=== PATIENT | female | born 1995 | race Caucasian/White ===

== ENCOUNTER → 2017-01-04 | Outpatient (CLI) | payer MEDICAID ==
--- NOTE | 2017-01-04 22:10 | WWHP ---
DATE OF SERVICE: 01/04/2017. CHIEF COMPLAINT: Patient is here for her routine gynecologic exam. HPI: This is a 22-year-old G0 with an LMP of 11/26/2016. She has been using condoms and occasionally withdrawal for control. She states she would like to go back on control pills. She previously was on Junel for control until about a year ago when she did not have insurance. She is without gynecologic complaints. She states her periods have been slightly more irregular off of control pills and have been about every 5 to 6 weeks. Her last pelvic exam was about 2 years ago. PAST MEDICAL HISTORY: Unremarkable. MEDICATIONS: None. ALLERGIES: No known drug allergies. PAST SURGICAL HISTORY: Unremarkable. 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 SOCIAL HISTORY: She denies tobacco and drug use and has about 4 to 5 alcoholic drinks per week. She has been with her boyfriend since about 2006. They are engaged to be on 07/16/2017. The patient works for [employer] in patient [place] in. FAMILY HISTORY: Mother has thyroid problems. She denies family history of cancer of the breast, uterus, ovaries or colon. REVIEW OF SYSTEMS: She denies respiratory, cardiac, or GI problems. PHYSICAL EXAM: Blood pressure 138/76. Height 5 feet 6 inches. Weight 171 pounds. Temperature 99.0, pulse 71. This is a well-developed, well-nourished white female who is alert and oriented x3 in no acute distress. HEENT is within normal limits. NECK: Supple without mass or thyromegaly. CHEST AND LUNGS: Clear to auscultation. HEART: Regular rate and rhythm. Breasts are without mass or discharge. Axillary exam is negative for adenopathy. BACK: Negative for CVA tenderness. ABDOMEN: Soft, nontender, without palpable masses. PELVIC EXAM: Normal external genitalia. Cervix and vagina appear normal. There is no unusual discharge. There is no cervical motion tenderness. The uterus is midposition, nongravid size and nontender. There are no palpable adnexal masses or tenderness. Rectal exam was deferred. EXTREMITIES: Nontender. IMPRESSION: A 22-year-old healthy female requesting oral contraception for control. PLAN: 1. Pap smear was performed. 2. Self-breast examination was discussed. 3. GC and Chlamydia screening from the cervix has been obtained. 4. We have had a long discussion regarding control and control options. The patient would like to restart Junel. A prescription for Junel was given to the patient. She will take 1 p.o. daily and she will start this on Tuesday following the onset of her next normal period. We had a long discussion regarding possible side effects and risks of control pill including increased risk for blood clots, which could include TN or CVA. She will also use condoms through the first pack of pills and if needed for STD prevention. 5. She will do blood pressure checks. She states she will do this in the hospital since she works here. She will let me know if she has blood pressure elevation or problems. 6. She will return in one year.
== END ==
LOC: WWCWWP 09:58
PROVIDERS: ATTEND Obstetrics & Gynecology
DX: Z11.3 Encounter for screening for infections with a predominantly sexual mode of transmission (principal); Z01.419 Encounter for gynecological examination (general) (routine) without abnormal findings
CPT/HCPCS: 87491; 87591

== ENCOUNTER → 2018-01-25 | Outpatient (CLI) | payer MEDICAID ==
[2018-01-25 08:12] VITALS: BP 136/88; PULSE 111; TEMP 98; BMI 26.1
--- NOTE | 2018-01-25 08:45 | P.HPOB ---
History of Present Illness H&P Date: 01/25/18 Chief Complaint: The patient is here for her routine gynecologic exam. This is a 23-year-old G0 with an LMP of 01/08/2018. She is on oral contraception for control. She is without gynecologic complaints and would like to continue on the control pills. She does not plan on getting in the next 1 to 2 years. Her menstrual periods are regular and not heavy. Review of Systems She has lost 9 pounds over the last year. She denies respiratory, cardiac, or G.I. problems. 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 Past Surgical History: No Surgical Hx Reported Past Psychological History: No Psychological Hx Reported Smoking Status: Never smoker Past Alcohol Use History: Occasional (2 per week) Past Drug Use History: None Reported Additional History: She has been since June 2017. She works for [employer] in [employer] in. - Past Family History Mother Family Medical History: Thyroid Disorder Medications and Allergies Home Medications Medication Instructions Recorded Confirmed Type Norethindrone-E.estradiol-Iron DAILY 01/25/18 History [Junel Fe 1.5 mg-30 Mcg Tablet] Allergies Allergy/AdvReac Type Severity Reaction Status Date / Time No Known Allergies Allergy Verified 01/25/18 08:40 Exam - Vital Signs Vital signs: Vital Signs Temp Pulse BP 01/25/18 08:01 98.0 F 111 H 136/88 Intake and Output 01/24/18 01/25/18 01/25/18 22:59 06:59 14:59 Other: Weight 73.482 kg Height 5'6", BMI 26.1. This is a well-developed well-nourished white female who is alert and oriented times 3 in no acute distress. HEENT: Within normal limits. NECK: Supple without mass or thyromegaly. CHEST AND LUNGS: Clear to auscultation. HEART: Regular rhythm with mild tachycardia. BREASTS: Are without mass or discharge. AXILLARY EXAM: Negative for adenopathy. BACK: Negative for CVA tenderness. ABDOMEN: Soft, nontender, without palpable masses. PELVIC EXAM: Normal external genitalia. Cervix and vagina appear normal. There is no unusual discharge. There is no evidence of prolapse. The uterus is midposition, nongravid size and nontender. There are no palpable adnexal masses or tenderness. RECTAL EXAM: deferred EXTREMITIES: Nontender. IMPRESSION: 1. 23-year-old gynecologically healthy female doing well on oral contraception. PLAN: 1. Pap smear was deferred since she had a normal one last year. 2. Self breast awareness was discussed. 3. Osteoporosis prevention was discussed. 4. I have recommended a daily multivitamin especially if she decides to stop the control pills to attempt . 5. She will return in one year.
[2018-01-27 07:18] LABS: C. trachomatis,PCR Negative (Neg,Equiv); Chlamydia trachomatis Source Cervix; N. gonorrhoeae,PCR Negative (Neg,Equiv); Neisseria Source Cervix
== END ==
LOC: WWCWWP 07:54
PROVIDERS: ATTEND Obstetrics & Gynecology
DX: Z11.3 Encounter for screening for infections with a predominantly sexual mode of transmission (principal)
CPT/HCPCS: 87491; 87591

== ENCOUNTER → 2019-05-18 | Outpatient (CLI) | payer MEDICAID ==
[2019-05-18 08:18] LABS: Basophils # (A) 0.1 k/uL (0-0.2); Basophils % (A) 1 %; Eosinophils # (A) 0.2 k/uL (0-0.7); Eosinophils % (A) 3 %; HCT 41.7 % (34.0-46.0); HGB 13.6 gm/dL (11.4-16.0); Lymphocytes # (A) 2.3 k/uL (1.0-4.8); Lymphocytes % (A) 38 %; MCH 30.3 pg (25.0-35.0); MCHC 32.7 g/dL (31.0-37.0); MCV 92.8 fL (80.0-100.0); Monocytes # (A) 0.3 k/uL (0-1.0); Monocytes % (A) 4 %; Neutrophils % (A) 51 %; Platelet Count 274 k/uL (150-450); RBC 4.49 m/uL (3.80-5.40); RDW 12.7 % (11.5-15.5)
[2019-05-18 19:07] LABS: African American GFR (CKD) 102.3 (60.0-200.0); Albumin 4.8 g/dL (3.80-4.90); Albumin/Globulin Ratio 1.92 (1.60-3.17); Anion Gap 11.6 mmol/L (4.00-12.00); BUN/Creat Ratio 15.56 Ratio (12.00-20.00); Carbon Dioxide 23.4 mmol/L (21.6-31.8); Globulin 2.5 g/dL (1.6-3.3); LDL Cholesterol,Calculated 77.6 mg/dL (0.0-131.0); Potassium 4.6 mmol/L (3.5-5.5); Total Bilirubin 0.6 mg/dL (0.3-1.2); Total Protein 7.3 g/dL (6.2-8.2); VLDL Calculation 24.4 mg/dL (5.00-40.00)
== END | disposition home or self-care (01) ==
LOC: LABWHC1 07:59
PROVIDERS: ATTEND Family Medicine
DX: Z00.00 Encounter for general adult medical examination without abnormal findings (principal)
CPT/HCPCS: 36415; 80053; 80061; 82306; 84443; 85025

== ENCOUNTER 2020-03-30 18:52 | Emergency (ER) | payer MEDICAID ==
[2020-03-30 19:13] VITALS: BP 109/78; PULSE 78; RESP 16; TEMP 98.1
[2020-03-30] MEDS ORDERED: SODIUM CHLORIDE 0.9% 500 ML 500 ML IV STA (19:19)
[2020-03-30] MEDS ORDERED: MORPHINE SULFATE 4 MG/ML SYRINGE IV STA (19:20)
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
[2020-03-30] MEDS ORDERED: LIDOCAINE 1% INJ 10MG/ML (20 ML MDV) SQ STA (19:55)
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
[2020-03-30 20:17] LABS: Basophils % (A) 1 %; Eosinophils # (A) 0.2 k/uL (0-0.7); Eosinophils % (A) 3 %; HCT 39.2 % (34.0-46.0); HGB 13.3 gm/dL (11.4-16.0); Lymphocytes # (A) 2.6 k/uL (1.0-4.8); Lymphocytes % (A) 45 %; MCHC 33.9 g/dL (31.0-37.0); MCV 91.4 fL (80.0-100.0); Mean Platelet Volume 7.5; Monocytes # (A) 0.2 k/uL (0-1.0); Monocytes % (A) 3 %; Neutrophils # (A) 2.6 k/uL (1.3-7.7); Neutrophils % (A) 46 %; Platelet Count 255 k/uL (150-450); RBC 4.29 m/uL (3.80-5.40); RDW 12.2 % (11.5-15.5); WBC 5.7 k/uL (3.8-10.6)
[2020-03-30] MEDS ORDERED: MORPHINE SULFATE 2 MG/ML SYRINGE IVP STA (20:24)
[2020-03-30 20:28] LABS: ALT 20 U/L (4-34); AST 28 U/L (14-36); African American GFR (CKD) >90 (>60 ml/min/1.73 sqM); Albumin 4.9 g/dL (3.5-5.0); Alcohol 73 mg/dL; Alkaline Phosphatase 45 U/L (38-126); Amylase 74 U/L (30-110); Anion Gap 11 mmol/L; Blood Urea Nitrogen 12 mg/dL (7-17); Calcium 9.7 mg/dL (8.4-10.2); Carbon Dioxide 24 mmol/L (22-30); Chloride 105 mmol/L (98-107); Glucose 90 mg/dL (74-99); Non-African American GFR(CKD) >90 (>60 ml/min/1.73 sqM); Potassium 3.8 mmol/L (3.5-5.1); Sodium 140 mmol/L (137-145); Total Bilirubin 0.2 mg/dL (0.2-1.3)
[2020-03-30 20:34] LABS: INR 0.9 (<1.2); Prothrombin Time 9.7 sec (9.0-12.0)
--- NOTE | 2020-03-30 20:41 | XR ---
EXAMINATION TYPE: XR wrist limited LT DATE OF EXAM: 03/30/2020 COMPARISON: NONE HISTORY: Post reduction TECHNIQUE: 2 views FINDINGS: There is impacted transverse fracture distal radial metaphysis. There is anterior angulatio n at the fracture site. There is ulnar styloid process fracture. There is no dislocation. IMPRESSION: Fractures of the distal radius and ulna as above without significant change in position c ompared to initial exam.
[2020-03-30 20:42] LABS: Creatine Kinase 130 U/L (30-135); Partial Thromboplastin Time 19.9 sec (22.0-30.0)
[2020-03-30 20:55] LABS: Creatine Kinase MB 0.8 ng/mL (0.0-2.4); Troponin I <0.012 ng/mL (0.000-0.034)
--- NOTE | 2020-03-30 21:00 | XR ---
EXAMINATION TYPE: XR wrist limited LT DATE OF EXAM: 03/30/2020 COMPARISON: Today HISTORY: Post reduction TECHNIQUE: 2 views FINDINGS: There is persistent 50% posterior displacement of the distal radius fracture fragment on th e lateral view. There is slight decrease in the angulation. There is soft tissue swelling around the carpus. There is ulnar styloid process fracture with separation 4 mm unchanged. IMPRESSION: Improvement in the angulation but persistent moderate posterior displacement of the dista l radius fragment 50%.
[2020-03-30] MEDS ORDERED: ACET/COD 300 MG/30 MG STARTER PACK 6 TAB BTL PO STA (21:54)
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
== END 2020-03-30 22:05 | disposition home or self-care (01) ==
LOC: EC 18:52
DX: S52.592A Other fractures of lower end of left radius, initial encounter for closed fracture (principal); S52.692A Other fracture of lower end of left ulna, initial encounter for closed fracture; V86.56XA Driver of dirt bike or motor/cross bike injured in nontraffic accident, initial encounter
CPT/HCPCS: 86900; 86901; 80053; 82150; 82550; 82553; 83605; 83690; 84484; 85025; 85610; 85730; 86850; 80320; 72170; 73100; 73120; 71045; 72125; 70450; 99285; 25605; 96374; 96376; 96361; J2270 ×2; J2001; 36415; 93005

== ENCOUNTER → 2020-03-31 | Outpatient (CLI) | payer MEDICAID ==
[2020-03-31 10:57] LABS: Basophils % (A) 0 %; Eosinophils # (A) 0.1 k/uL (0-0.7); Eosinophils % (A) 1 %; HCT 39.3 % (34.0-46.0); HGB 12.7 gm/dL (11.4-16.0); Lymphocytes # (A) 1.9 k/uL (1.0-4.8); Lymphocytes % (A) 25 %; MCH 30.2 pg (25.0-35.0); MCHC 32.4 g/dL (31.0-37.0); MCV 93.4 fL (80.0-100.0); Mean Platelet Volume 7.6; Monocytes # (A) 0.3 k/uL (0-1.0); Monocytes % (A) 3 %; Neutrophils # (A) 5.1 k/uL (1.3-7.7); Neutrophils % (A) 68 %; Platelet Count 267 k/uL (150-450); RBC 4.21 m/uL (3.80-5.40); RDW 12.5 % (11.5-15.5); WBC 7.5 k/uL (3.8-10.6)
== END | disposition home or self-care (01) ==
LOC: LAB 09:35
PROVIDERS: ATTEND Orthopaedic Surgery
DX: Z01.818 Encounter for other preprocedural examination (principal); S52.552A Other extraarticular fracture of lower end of left radius, initial encounter for closed fracture; S52.612A Displaced fracture of left ulna styloid process, initial encounter for closed fracture
CPT/HCPCS: 36415; 81025; 85025

== ENCOUNTER 2020-04-01 14:37 | Day surgery (SDC) | payer MEDICAID ==
[2020-03-31 13:50] VITALS: BMI 26.6
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
[~2020-04-01 14:37] MED LIST: DEXAMETHASONE SOD PHOSPHATE 10 MG/ML 1 ML VIAL IV ONE; LIDOCAINE 1% (10MG/ML) FOR IV START INTRADERMA PRN; ONDANSETRON 4 MG/2 ML VIAL IVP ONE; SCOPOLAMINE 1.5MG/72HR PATCH TRANSDERM ONE
[2020-04-01] MEDS: LACTATED RINGERS 1,000 ML IV SCH (15:05)
[2020-04-01] MEDS ORDERED: NEOSTIGMINE 1 MG/ML 10 ML VIAL ONE (17:29)
[2020-04-01] MEDS ORDERED: MIDAZOLAM 2 MG/2 ML VIAL ONE (17:29)
[2020-04-01] MEDS ORDERED: PHENYLEPHRINE-0.9% NACL SYG 1 MG/10 ML SYRINGE ONE (17:29)
[2020-04-01] MEDS ORDERED: ROCURONIUM BROMIDE 10 MG/ML 5 ML VIAL IV ONE (17:29)
[2020-04-01] MEDS ORDERED: LIDOCAINE 1% INJ 10MG/ML (20 ML MDV) ONE (17:29)
[2020-04-01] MEDS ORDERED: GLYCOPYRROLATE 0.2 MG/ML 2 ML VIAL ONE (17:29)
[2020-04-01] MEDS ORDERED: fentaNYL (PF) 50 MCG/ML 2 ML AMP ONE (17:29)
[2020-04-01] MEDS ORDERED: PROPOFOL 10 MG/ML 20 ML VIAL IV ONE (17:29)
[2020-04-01] MEDS ORDERED: LACTATED RINGERS 1,000 ML IV ONE (18:15)
[2020-04-01] MEDS ORDERED: ceFAZolin 1,000 MG in SODIUM CHLORIDE 0.9% 1,000 ML IRRIGATION ONE (18:39)
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
[2020-04-01] MEDS: HYDROmorphone 0.5 MG/0.5 ML SYRINGE IVP PRN ×3 (19:30→19:51)
[2020-04-01] MEDS ORDERED: MEPERIDINE 50 MG/ML SYRINGE IVP ONE (19:38)
[2020-04-01] MEDS ORDERED: HYDROcodone/APAP 10-325MG 1 EACH TAB PO ONE (20:02)
[2020-04-01] MEDS ORDERED: HYDROcodone/APAP 7.5-325MG 1 EACH TAB PO PRN ×2 (22:57→22:58)
[2020-04-01] MEDS ORDERED: HYDROmorphone 0.5 MG/0.5 ML SYRINGE IVP PRN (22:58)
[2020-04-02] MEDS: LACTATED RINGERS 1,000 ML IV SCH (07:29)
[2020-04-02 07:37] VITALS: BP 118/75; PULSE 74; RESP 18; TEMP 98.7
--- NOTE | 2020-04-02 07:53 | FL ---
EXAMINATION TYPE: FL guidance operating room, XR wrist complete LT DATE OF EXAM: 04/01/2020 CLINICAL HISTORY: Left wrist fracture. TECHNIQUE: Fluoroscopy. Intraoperative 3 views left wrist. COMPARISON: Left wrist x-ray 2 days earlier. FINDINGS: Fluoroscopic guidance was provided during open reduction internal fixation procedure perfo rmed by Dr Miles. A total of 46 seconds of fluoroscopic time was utilized during the procedure and 3 spot intraoperative images are acquired. Intraoperative images obtained show placement of dorsal fixating plate comminuted intra-articular fra cture distal radial meta-epiphysis. Satisfactory alignment is seen on intraoperative images saved. IMPRESSION: As Above.
--- NOTE | 2020-04-02 08:38 | P.DS ---
Providers Date of admission: 04/01/2020 Expected date of discharge: 04/02/20 Attending physician: Raghavendra Miles Primary care physician: Sebastian Sarah Hospital Course: Date of admission: 04/01/2020 Date of discharge: 04/02/2020 Admission diagnosis: Status post ORIF left distal radius fracture Discharge diagnosis: Same Attending physician: Dr. Miles Surgical procedures: ORIF left distal radius fracture Brief history: Patient is a 25-year-old female who was evaluated in the outpatient setting by Dr. Miles for a left wrist injury. It was determined she would need surgical fixation for a displaced left distal radius fracture. She was scheduled for surgery on 04/01/2020. Hospital course: Details of patient's surgery can be found in operative report. Patient tolerated the procedure well and was subsequently transported to orth opedic floor. Discharge condition/disposition: Patient will be discharged home in stable condition. Discharge medications: Instructions are given on resumption of patient's normal daily medications per primary care recommendation, in addition patient will be prescribed [place] 7.5 mg/325 mg, ibuprofen 800 mg Discharge instructions: 1. Pain medication as needed 2. Utilize arm sling as needed 3. Keep splint clean, covered, and dry while showering 4. Elevate and ice as needed 5. Plan [facility] Procedures: Open reduction internal fixation left distal radius fracture Patient Condition at Discharge: Good Plan - Discharge Summary New Discharge Prescriptions: New Ibuprofen 800 mg PO Q8H PRN #30 tab PRN Reason: Pain HYDROcodone/APAP 7.5-325MG [[place] 7.5] 1 each PO Q6HR PRN #28 tab PRN Reason: Pain No Action Hydrocodone/Acetaminophen [[place] 5-325] 2 tab PO Q6HR PRN PRN Reason: Pain Discharge Medication List Hydrocodone/Acetaminophen [[place] 5-325] 2 tab PO Q6HR PRN 03/31/20 [History] HYDROcodone/APAP 7.5-325MG [[place] 7.5] 1 each PO Q6HR PRN #28 tab 04/01/20 [Rx] Ibuprofen 800 mg PO Q8H PRN #30 tab 04/01/20 [Rx] Follow up Appointment(s)/Referral(s): Moris Wynn PAC [PHYSICIAN BRAINER] - 2 Weeks Activity/Diet/Wound Care/Special Instructions: Orthopedic discharge instructions: 1. Do not remove the splint, keep covered and dry while showering 2. Pain medication as needed 3. Utilize arm sling as needed 4. Ice and elevate often 5. Minimize activity with left upper extremity 6. Plan for [facility]-up at [facility] 2 weeks Discharge Disposition: HOME SELF-CARE
== END 2020-04-02 09:08 | disposition home or self-care (01) ==
LOC: OR 14:37 → 4SSUR 19:42 → OR 04-02 09:08
PROVIDERS: ATTEND Orthopaedic Surgery
DX: S52.552A Other extraarticular fracture of lower end of left radius, initial encounter for closed fracture (principal); V89.0XXA Person injured in unspecified motor-vehicle accident, nontraffic, initial encounter; Y93.89 Activity, other specified; Y92.096 Garden or yard of other non-institutional residence as the place of occurrence of the external cause; K21.9 Gastro-esophageal reflux disease without esophagitis; Z83.79 Family history of other diseases of the digestive system; Z79.891 Long term (current) use of opiate analgesic
CPT/HCPCS: 73110; 25607; C1713; J2250; J1100; J2710; J2175; J0690 ×2; J2405; J2001; J3010; J2370; J2704; J1170 ×2

== ENCOUNTER → 2020-10-21 | Outpatient (CLI) | payer BC ==
[2020-10-21 16:31] LABS: T4, Free (Free Thyroxine) 1.2 ng/dL (0.80-1.80)
== END | disposition home or self-care (01) ==
LOC: LABWHC1 07:47
PROVIDERS: ATTEND Obstetrics & Gynecology Obstetrics
DX: E03.9 Hypothyroidism, unspecified (principal); N91.2 Amenorrhea, unspecified
CPT/HCPCS: 36415; 84439; 84443

== ENCOUNTER → 2021-06-05 | Outpatient (CLI) | payer BC | END | disposition home or self-care (01) | LOC: LABMAIN 17:11 | PROVIDERS: ATTEND Physician Assistant | DX: Z20.822 Contact with and (suspected) exposure to COVID-19 (principal) | CPT/HCPCS: 87635 ==

== ENCOUNTER 2021-08-14 12:29 | Inpatient (IN) | payer BC ==
[2021-08-14 13:35] LABS: Appearance,Urine Clear (Clear); Bilirubin,Urine Negative (Negative); Blood,Urine Negative (Negative); Color,Urine Light Yellow; Glucose,Urine (UA) Negative (Negative); Ketones,Urine Negative (Negative); Leukocyte Esterase,Urine Negative (Negative); Nitrite,Urine Negative (Negative); Protein,Urine Negative (Negative); Urobilinogen,Urine <2.0 mg/dL (<2.0)
[2021-08-14 13:37] LABS: Basophils % (A) 0 %; Eosinophils # (A) 0.1 k/uL (0-0.7); Eosinophils % (A) 1 %; HCT 36.4 % (34.0-46.0); HGB 12.3 gm/dL (11.4-16.0); Lymphocytes # (A) 1.8 k/uL (1.0-4.8); Lymphocytes % (A) 17 %; MCH 31.7 pg (25.0-35.0); MCHC 33.8 g/dL (31.0-37.0); MCV 93.8 fL (80.0-100.0); Mean Platelet Volume 8.1; Monocytes # (A) 0.4 k/uL (0-1.0); Monocytes % (A) 3 %; Neutrophils # (A) 8.7 k/uL (1.3-7.7); Neutrophils % (A) 78 %; Platelet Count 200 k/uL (150-450); RBC 3.88 m/uL (3.80-5.40); RDW 12.3 % (11.5-15.5); WBC 11.1 k/uL (3.8-10.6)
[2021-08-14 13:53] LABS: ALT 13 U/L (4-34); AST 20 U/L (14-36); African American GFR (CKD) >90 (>60 ml/min/1.73 sqM); Blood Urea Nitrogen 9 mg/dL (7-17); LDH 380 U/L (313-618); Non-African American GFR(CKD) >90 (>60 ml/min/1.73 sqM); Uric Acid 4.8 mg/dL (3.7-7.4)
[2021-08-14 13:55] LABS: Protein/Creatinine Ratio,Urine 0.163
[2021-08-14] MEDS ORDERED: OXYTOCIN 10 UNIT/ML 1 ML VIAL IM PRN (14:06)
[2021-08-14] MEDS ORDERED: METHYLERGONOVINE 0.2 MG/ML 1 ML AMP IM PRN (14:06)
[2021-08-14] MEDS ORDERED: TERBUTALINE 1 MG/ML VIAL SQ PRN (14:06)
[2021-08-14] MEDS ORDERED: CARBOPROST TROMETHAMINE 250 MCG/ML 1 ML AMP IM PRN (14:06)
[2021-08-14] MEDS ORDERED: LIDOCAINE 0.5% (PF) 5 MG/ML (50 ML SDV) SQ PRN (14:06)
[2021-08-14] MEDS ORDERED: BUTORPHANOL 1 MG/ML 1 ML VIAL IV PRN (14:09)
[2021-08-14] MEDS ORDERED: OXYTOCIN 30 UNITS/500 ML NS 30 UNIT in SALINE 1 500ML.BAG IV SCH ×2 (14:15→18:45)
[2021-08-14] MEDS: LACTATED RINGERS 1,000 ML IV SCH (14:28)
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
[2021-08-14 15:44] LABS: INR 0.8 (<1.2); Prothrombin Time 9.4 sec (9.0-12.0)
[2021-08-14] MEDS ORDERED: ACETAMINOPHEN TAB 325 MG TAB PO PRN (18:42)
[2021-08-14] MEDS ORDERED: diphenhydrAMINE 50 MG/ML 1 ML VIAL IVP PRN ×2 (18:42)
[2021-08-14] MEDS ORDERED: diphenhydrAMINE 25 MG CAP PO PRN (18:42)
[2021-08-14] MEDS ORDERED: LANOLIN CREAM 5 GM TUBE TOPICAL PRN (18:42)
[2021-08-14] MEDS ORDERED: SIMETHICONE 80 MG CHEWABLE PO PRN (18:42)
[2021-08-14] MEDS ORDERED: HYDROCORTISONE 2.5% RECTAL CREAM 30 GM TUBE RECTAL PRN (18:42)
[2021-08-14] MEDS ORDERED: diphenhydrAMINE 50 MG CAP PO PRN (18:42)
[2021-08-14] MEDS ORDERED: BENZOCAINE/MENTHOL SPRAY 1 GM/SPRAY AEROSOL TOPICAL PRN (18:42)
[2021-08-14] MEDS ORDERED: ZOLPIDEM 5 MG TAB PO PRN (18:42)
--- NOTE | 2021-08-14 18:42 | P.PROBDLV ---
Vaginal Delivery Note - . Vaginal Delivery Note: This is a 26-year-old 1 para 0 at 39-3/7 weeks that presented to labor and delivery this afternoon with complaints of regular painful contractions. Patient was noted to be 3-4 cm. Patient was in addition noted have slightly elevated blood pressure 140/90 with negative preeclampsia labs. Patient was admitted to labor and delivery after slight cervical change was noted to for 70 m. Patient underwent amniotomy and clear fluid was obtained. Patient progress ed quickly to complete began pushing and had a normal spontaneous vaginal delivery of a viable female infant after midline episiotomy was performed. weight of 7 lbs. 8 oz., at 1811. After two-minute delayed the umbilical cord was doubly clamped and cut. The was handed to the maternal abdomen. The placenta was delivered spontaneously intact with a three-vessel cord being noted. A large gush of bleeding was noted after the delivery of the placenta therefore Methergine was given. The uterus is noted to be atonic therefore the bladder was drained of approximately 150 mL of clear yellow urine with a red rubber catheter. The uterus was then noted to be firm. The midline second-degree episiotomy was repaired in the usual fashion with 3-0 Rapide, hemostasis was appreciated. Uterus was still noted to be boggy at this time therefore manual extraction revealed 2 large clots the uterus immediately firm to below the umbilicus. The repair was inspected once again hemostasis was appreciated. All counts were noted be correct 2 at the end of the delivery. Patient and tolerated delivery well and are resting comfortably.
[2021-08-14] MEDS: IBUPROFEN 600 MG TAB PO SCH (19:13)
[2021-08-14] MEDS: SENNOSIDES-DOCUSATE SODIUM 1 EACH TAB PO SCH (21:15)
[2021-08-15] MEDS: LACTATED RINGERS 1,000 ML IV SCH (00:12)
[2021-08-15] MEDS: IBUPROFEN 600 MG TAB PO SCH ×4 (05:13→18:55)
[2021-08-15 08:10] VITALS: RESP 14
[2021-08-15 08:46] LABS: Basophils % (A) 0 %; Eosinophils # (A) 0.1 k/uL (0-0.7); Eosinophils % (A) 0 %; HCT 30.6 % (34.0-46.0); HGB 10.4 gm/dL (11.4-16.0); Lymphocytes # (A) 1.8 k/uL (1.0-4.8); Lymphocytes % (A) 13 %; MCH 32.3 pg (25.0-35.0); MCHC 33.9 g/dL (31.0-37.0); MCV 95.3 fL (80.0-100.0); Mean Platelet Volume 8.2; Monocytes # (A) 0.5 k/uL (0-1.0); Monocytes % (A) 3 %; Neutrophils # (A) 11.4 k/uL (1.3-7.7); Neutrophils % (A) 82 %; Platelet Count 205 k/uL (150-450); RBC 3.21 m/uL (3.80-5.40); RDW 12.5 % (11.5-15.5)
[2021-08-15] MEDS: SENNOSIDES-DOCUSATE SODIUM 1 EACH TAB PO SCH ×2 (08:47→18:54)
--- NOTE | 2021-08-15 11:22 | P.DS ---
Providers Date of admission: 08/14/21 14:13 Expected date of discharge: 08/15/21 Attending physician: Michelle Lafleur Primary care physician: Stated None - Discharge Diagnosis(es) (1) Active labor Current Visit: Yes Status: Acute (2) Term Current Visit: Yes Status: Acute (3) Perineal laceration with delivery, second degree Current Visit: Yes Status: Acute (4) Normal spontaneous vaginal delivery Current Visit: Yes Status: Acute Hospital Course: This is a 26-year-old 1 now para 1 woman who presented in spontaneous active labor at 39-3/7 weeks gestation. She had an uncomplicated . Following admission she did undergo artificial rupture of membranes and had a rapid first stage of labor. She progressed to complete dilation and went on to deliver a liveborn female over a second-degree midline episiotomy. Infant's weight was 7 lbs. 8 oz. She did have some mild atony that was managed by the manual uterine massage and a single dose of Methergine. See delivery summary for details. On day one she is doing well. She's had a significant decrease in lochia and is ambulating and voiding spontaneously on her own. Vital signs are stable and her day #1 hemoglobin is 10.4, admission hemoglobin was 12.3. She is breast-feeding successfully. Uterus is firm and nontender below the level of the umbilicus. She is counseled on discharge home at 24 hours and this is what she and her desire pending clearance and discharged of by the journeyman painter. Procedures: Normal spontaneous vaginal delivery Patient Condition at Discharge: Good Plan - Discharge Summary New Discharge Prescriptions: No Action Aspirin [Children's Aspirin] 81 mg PO DAILY Pnv No.95/Ferrous Fum/Folic AC [ Multivitamin Tablet] 1 each PO DAILY Discharge Medication List Aspirin [Children's Aspirin] 81 mg PO DAILY 08/14/21 [History] Pnv No.95/Ferrous Fum/Folic AC [ Multivitamin Tablet] 1 each PO DAILY 08/14/21 [History] Follow up Appointment(s)/Referral(s): Michelle Lafleur DO [Doctor of Osteopathic Medicine] - 4 Weeks Activity/Diet/Wound Care/Special Instructions: Follow-up in the office in 4-6 weeks . Call with any concerning signs or symptoms including heavy vaginal bleeding, severe abdominal pain, fever greater than 101, swelling or redness of the lower extremities, foul vaginal discharge, or signs of depression. Nothing in the vagina for 6 weeks after delivery, specifically no intercourse. May use [id number] Tylenol and/or ibuprofen as needed for pain. Discharge Disposition: HOME SELF-CARE
[2021-08-15 16:04] VITALS: BP 131/71; PULSE 88; TEMP 98.1
== END 2021-08-15 19:11 | disposition home or self-care (01) | DRG 807 ==
LOC: FBPOP 12:29 → 4FBP 14:13
PROVIDERS: ADMIT Obstetrics & Gynecology Obstetrics; ATTEND Obstetrics & Gynecology Obstetrics
PROC: 10E0XZZ Delivery of Products of Conception, External Approach (ICD-10-PCS; principal; 2021-08-14)
PROC: 0KQM0ZZ Repair Perineum Muscle, Open Approach (ICD-10-PCS; 2021-08-14)
DX: O99.284 Endocrine, nutritional and metabolic diseases complicating childbirth (principal); Z37.0 Single live birth; E03.9 Hypothyroidism, unspecified; O70.1 Second degree perineal laceration during delivery; Z3A.39 39 weeks gestation of pregnancy; Z79.82 Long term (current) use of aspirin; Z82.0 Family history of epilepsy and other diseases of the nervous system
CPT/HCPCS: 59025; 81003; 82565; 82570; 83615; 84156; 84450; 84460; 84520; 84550; 85025; 85610; 85730; 99215

== ENCOUNTER → 2021-09-12 | Outpatient (CLI) | payer BC | END | disposition home or self-care (01) | LOC: LABWHC1 21:18 | PROVIDERS: ATTEND Nurse Practitioner | DX: Z20.822 Contact with and (suspected) exposure to COVID-19 (principal) | CPT/HCPCS: 87635 ==

== ENCOUNTER 2022-04-22 18:16 | Emergency (ER) | payer BC, MEDICAID ==
[2022-04-22 18:23] VITALS: TEMP 98.5
[2022-04-22] MEDS ORDERED: SODIUM CHLORIDE 0.9% 1,000 ML IV STA (19:12)
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
[2022-04-22 20:31] LABS: Basophils % (A) 0 %; Eosinophils # (A) 0.1 k/uL (0-0.7); Eosinophils % (A) 1 %; HCT 37.9 % (34.0-46.0); HGB 12.7 gm/dL (11.4-16.0); Lymphocytes # (A) 0.8 k/uL (1.0-4.8); Lymphocytes % (A) 13 %; MCH 31.2 pg (25.0-35.0); MCHC 33.5 g/dL (31.0-37.0); MCV 93.2 fL (80.0-100.0); Mean Platelet Volume 7.7; Monocytes # (A) 0.2 k/uL (0-1.0); Monocytes % (A) 3 %; Neutrophils % (A) 82 %; Platelet Count 239 k/uL (150-450); RBC 4.06 m/uL (3.80-5.40); RDW 12.2 % (11.5-15.5); WBC 6.1 k/uL (3.8-10.6)
--- NOTE | 2022-04-22 20:46 | XR ---
EXAMINATION TYPE: XR chest 2V DATE OF EXAM: 04/22/2022 COMPARISON: 03/30/2020 HISTORY: Chest pain TECHNIQUE: Frontal and lateral views of the chest are obtained. FINDINGS: There is no focal air space opacity. No evidence for pneumothorax. No pleural effusion. The cardiac silhouette size is within normal limits. The osseous structures are grossly intact. IMPRESSION: 1. No acute cardiopulmonary process.
[2022-04-22 21:01] LABS: African American GFR (CKD) >90 (>60 ml/min/1.73 sqM); Anion Gap 8 mmol/L; Blood Urea Nitrogen 9 mg/dL (7-17); Calcium 8.8 mg/dL (8.4-10.2); Carbon Dioxide 22 mmol/L (22-30); Chloride 107 mmol/L (98-107); Glucose 91 mg/dL (74-99); Lipase 131 U/L (23-300); Non-African American GFR(CKD) 88 (>60 ml/min/1.73 sqM); Sodium 137 mmol/L (137-145)
[2022-04-22 21:33] VITALS: BP 122/86; PULSE 92; RESP 16
== END 2022-04-22 21:32 | disposition home or self-care (01) ==
LOC: EC 18:16
DX: R07.89 Other chest pain (principal)
CPT/HCPCS: 36415; 71046; 80048; 81025; 83690; 84484; 85025; 85379; 93005

== ENCOUNTER 2023-10-01 08:58 | Emergency (ER) | payer MEDICAID ==
[2023-10-01 09:22] VITALS: TEMP 98.5
[2023-10-01] MEDS ORDERED: AMOXICILLIN 500 MG CAP PO STA (10:31)
--- NOTE | 2023-10-01 10:37 | ED ---
General Adult HPI - General Chief complaint: Upper Respiratory Infection Stated complaint: Fever,Sore Throat,Bodyaches Time Seen by Provider: 10/01/23 10:10 Source: patient, RN notes reviewed Mode of arrival: ambulatory Limitations: no limitations - History of Present Illness Initial comments: 28-year-old female currently 9 weeks presents to the emergency room for sore throat. Patient has had a sore throat for the past few days. She has also had fevers and chills. She has been taking Tylenol but is concerned because she is . She denies trouble swallowing besides pain. Denies change in voice.Patient has no other complaints at this time including shortness of breath, chest pain, abdominal pain, nausea or vomiting, headache, or visual changes. - Related Data Home Medications Medication Instructions Recorded Confirmed Acetaminophen Tab [Tylenol Tab] 500 mg PO Q6HR PRN 04/22/22 04/22/22 Ibuprofen [Motrin Ib] 400 mg PO Q8H PRN 04/22/22 04/22/22 norethindrone-e.estradioL-iron 1 tab PO DAILY 04/22/22 04/22/22 [Junel Fe 1.5 mg-30 Mcg Tablet] Previous Rx's Medication Instructions Recorded Amoxicillin 500 mg PO Q12HR #20 cap 10/01/23 Allergies Allergy/AdvReac Type Severity Reaction Status Date / Time No Known Allergies Allergy Verified 10/01/23 09:07 Review of Systems ROS Statement: Those systems with pertinent positive or pertinent negative responses have been documented in the HPI. ROS Other: All systems not noted in ROS Statement are negative. Past Medical History Past Medical History: GERD/Reflux, Thyroid Disorder Additional Past Medical History / Comment(s): fx left wrist, 03/30/20-has splint on, hypothyroidism, pcos History of Any Multi-Drug Resistant Organisms: None Reported Past Surgical History: No Surgical Hx Reported Additional Past Surgical History / Comment(s): oral surgery, plate and screws for left wrist Past Anesthesia/Blood Transfusion Reactions: No Reported Reaction, Motion Sickness Additional Past Anesthesia/Blood Transfusion Reaction / Comment(s): never had anesthesia Past Psychological History: No Psychological Hx Reported Smoking Status: Never smoker Past Alcohol Use History: None Reported Past Drug Use History: None Reported - Past Family History Mother Family Medical History: Neurologic Disorder, Thyroid Disorder Additional Family Medical History / Comment(s): epilepsy General Exam Limitations: no limitations General appearance: alert, in no apparent distress Head exam: Present: atraumatic Eye exam: Present: normal appearance, PERRL, EOMI. Absent: scleral icterus, conjunctival injection ENT exam: Present: mucous membranes moist, normal external ear exam. Absent: normal oropharynx (Exudates on tonsils. No evidence of peritonsillar abscess. Uvula midline.) Neck exam: Present: normal inspection, full ROM. Absent: tenderness Respiratory exam: Present: normal lung sounds bilaterally. Absent: respiratory distress, wheezes, rales Cardiovascular Exam: Present: regular rate, normal rhythm, normal heart sounds Course Vital Signs 10/01/23 09:05 Temperature 98.5 F Pulse Rate 113 H Respiratory 20 Rate Blood Pressure 113/70 O2 Sat by Pulse 99 Oximetry Medical Decision Making - Medical Decision Making Was pt. sent in by a medical professional or institution (KEITH Sosa, [employer] SPECIAL EDUCATION TEACHER, urgent care, hospital, or snf...) When possible be specific @ -[No] Did you speak to anyone other than the patient for history (EMS, parent, family, police, friend...)? What history was obtained from this source @ -Family Did you review nursing and triage notes (agree or disagree)? Why? @ -[I reviewed and agree with nursing and triage notes] Were old charts reviewed (outside hosp., previous admission, EMS record, old EKG, old radiological studies, urgent care reports/EKG's, snf records)? Report findings @ -[No old charts were reviewed] Differential Diagnosis (chest pain, altered mental status, abdominal pain women, abdominal pain men, vaginal bleeding, weakness, fever, dyspnea, syncope, headache, dizziness, GI bleed, back pain, seizure, CVA, palpatations, mental health)? @ -RSV, Tamara, influenza, viral pharyngitis EKG interpreted by me (3pts min.). @ -None done X-rays interpreted by me (1pt min.). @ -[None done] CT interpreted by me (1pt min.). @ -[None done] U/S interpreted by me (1pt. min.). @ -[None done] What testing was considered but not performed or refused? (CT, X-rays, U/S, labs)? Why? @ -[None] What meds were considered but not given or refused? Why? @ -Decadron however patient is Did you discuss the management of the patient with other professionals (professionals i.e. , PA, E[employer] SPECIAL EDUCATION TEACHER, lab, RT, psych nurse, clinical social worker, precision machinist, teacher, district fire management officer, skilled nursing case manager)? Give summary @ -[No] Was smoking cessation discussed for >3mins.? @ -[No] Was critical care preformed (if so, how long)? @ -[No] Were there social determinants of health that impacted care today? How? (Homelessness, low income, unemployed, alcoholism, drug addiction, transportation, low edu. Level, literacy, decrease access to med. care, mcc, rehab)? @ -[No] Was there de-escalation of care discussed even if they declined (Discuss DNR or withdrawal of care, Hospice)? DNR status @ -[No] What co-morbidities impacted this encounter? (DM, HTN, Smoking, COPD, CAD, Cancer, CVA, ARF, Chemo, Hep., AIDS, mental health diagnosis, sleep apnea, morbid obesity)? @ - Was patient admitted / discharged? Hospital course, mention meds given and route, prescriptions, significant lab abnormalities, going to OR and other pertinent info. @ -Patient was seen in the ER. Influenza RSV and Coban are negative. Strep was positive. Patient was treated with amoxicillin which was started in the ED. Patient discharged home to follow up with primary care. Educated on Tylenol use. Undiagnosed new problem with uncertain prognosis? @ -[No] Drug Therapy requiring intensive monitoring for toxicity (Heparin, Nitro, Insulin, Cardizem)? @ -[No] Were any procedures done? @ -[No] Diagnosis/symptom? @ -Strep throat Acute, or Chronic, or Acute on Chronic? @ -Acute Uncomplicated (without systemic symptoms) or Complicated (systemic symptoms)? @ -Uncomplicated Side effects of treatment? @ -[No] Exacerbation, Progression, or Severe Exacerbation? @ -[No] Poses a threat to life or bodily function? How? (Chest pain, [place], [place], pneumonia, PE, COPD, DKA, ARF, appy, cholecystitis, CVA, Diverticulitis, Homicidal, Suicidal, threat to staff... and all critical care pts) @ -[No] - Lab Data Lab Results 10/01/23 10/01/23 Range/Units 09:09 09:09 Influenza Type A (PCR) Not Detected (Not Detectd) Influenza Type B (PCR) Not Detected (Not Detectd) RSV (PCR) Not Detected (Not Detectd) SARS-CoV-2 (PCR) Not Detected (Not Detectd) Group A Strep (PCR) DETECTED A (Not Detectd) Disposition Clinical Impression: Strep throat Disposition: HOME SELF-CARE Condition: Good Instructions (If sedation given, give patient instructions): Strep Throat (ED) Additional Instructions: Please take Tylenol as needed for fever. Take amoxicillin as directed. Follow- up with your doctor in one to 2 days. Return to the emergency room for any worsening symptoms. Prescriptions: Amoxicillin 500 mg PO Q12HR #20 cap Is patient prescribed a controlled substance at d/c from ED?: No Referrals: Dina Clark MD [STAFF PHYSICIAN] - 1-2 days Time of Disposition: 10:35
[2023-10-01 11:39] VITALS: BP 118/81; PULSE 96; RESP 18
== END 2023-10-01 11:10 | disposition home or self-care (01) ==
LOC: EC 08:58
DX: O99.511 Diseases of the respiratory system complicating pregnancy, first trimester (principal); J02.0 Streptococcal pharyngitis; B95.0 Streptococcus, group A, as the cause of diseases classified elsewhere; Z20.822 Contact with and (suspected) exposure to COVID-19; Z3A.09 9 weeks gestation of pregnancy
CPT/HCPCS: 87636; 87651; 99283

== ENCOUNTER → 2023-10-03 | Outpatient (CLI) | payer MEDICAID ==
--- NOTE | 2023-10-03 15:43 | US ---
EXAMINATION TYPE: Transabdominal DATE OF EXAM: 10/03/2023 3:28 PM COMPARISON: NONE CLINICAL INDICATION: Female, 28 years old with history of O26.851 SPOTTING COMPLICATING , FI RST TRI; Patient states having an ultrasound 2 weeks ago at doctor office= everything was normal. Aaron kessler states spotting started last weekend but appears to be brighter today. EXAM PERFORMED: Transabdominal (TA) EXAM MEASUREMENTS: GESTATIONAL AGE / DATING Physician Established: Not yet established Dates by LMP: (9 weeks/2 days) EDC: 05/05/2024 Dates by First Scan: Previous ultrasound at doctor's office Dates by Current Scan for: (7 weeks/2 days) EDC: 05/19/2024 MATERNAL ANATOMY Uterus: 8.4 x 4.8 x 4.4 cm Right Ovary: 2.5 x 1.8 x 1.6 cm Left Ovary: 3.3 x 2.5 x 2.1 cm Post CDS / Adnexa: no free fluid Presence of free fluid: no Presence of corpus luteal cyst: right ovary hypoechoic lesion with peripheral vascularity - 1.7 x 1.4 x 1.7 cm Presence of subchorionic bleed: not visualized at time of scan GESTATION / SURVEY CRL: 1.1 cm (7 weeks/2 days) MSD: seen, not measured Yolk Sac (normal less than 6mm): 3.0 mm Heart Rate: Unable to obtain, negative heart tones IUP: No cardiac activity noted on today's scan. Question demise. Date of LMP: 07/30/2023, Beta HcG (if available): Not available at this time GS, YS and CRL visualized within endometrial canal. Negative FHT's identified. Mmode and color dopp ler both performed. IMPRESSION: 1. No heart rate was able to be obtained. Heart rate typically visualized greater than 6 weeks. There is discrepancy between the last menstrual period and dating by current ultrasound. Consider in trauterine demise.
== END | disposition home or self-care (01) ==
LOC: RADUSWWP 14:55
PROVIDERS: ATTEND Obstetrics & Gynecology Obstetrics
DX: O26.851 Spotting complicating pregnancy, first trimester (principal); Z3A.08 8 weeks gestation of pregnancy
CPT/HCPCS: 76801

== ENCOUNTER 2025-02-21 22:05 | Outpatient (CLI) | payer BC ==
[2025-02-21 23:39] VITALS: BP 143/88; PULSE 86; RESP 16; TEMP 99.1
--- NOTE | 2025-03-07 10:04 | P.MSEPDOC ---
Presenting Problems - Arrival Data Date of Arrival on Unit: 02/21/25 Time of Arrival on Unit: 22:05 Mode of Transport: Ambulatory - Complaint OB-Reason for Admission/Chief Complaint: Possible Onset of Labor Comment: Contractions starting at 1900, every 8 minutes Medical History - Information : 2 Para: 1 Term: 1 : 0 Abortions: Spontaneous or Elective: 0 Number of Living Children: 1 - Gestational Age Gestational Age by BAKARI (wks/days): 37 Weeks and 3 Days Review of Systems - Review of Systems Constitutional: No problems Breast: No problems ENT: No problems Cardiovascular: No problems Respiratory: No problems Gastrointestinal: No problems Genitourinary: No problems Musculoskeletal: No problems Neurological: No problems Skin: No problems Vital Signs - Temperature Temperature: 99.1 F Temperature Source: Temporal Artery Scan - Pulse Pulse Oximetery Pulse Rate: 86 Pulse Assessment Method: Pulse Oximetry - Respirations Respiratory Rate: 16 Oxygen Delivery Method: Room Air O2 Sat by Pulse Oximetry: 97 - Blood Pressure Right Arm Blood Pressure: 143/88 Blood Pressure Mean: 106 Blood Pressure Source: Automatic Cuff Medical Screen Scoring - Cervical Exam Dilation (cm): 1.5 Effacement (%): 50 Station: -2 Membranes: Intact - Uterine Contractions Frequency From (mins): 2 Frequency To (mins): 5 Duration From (seconds): 40 Duration To (seconds): 70 Intensity: Mild Resting: Soft to palpation - Assessment - Baby A Baseline FHR: 130 Heart Rate - NICHD Category: Category I (Normal) Physician Notification - Physician Notified Physician Notified Date: 02/21/25 Physician Notified Time: 23:17 Physician: Michelle Lafleur New Order Received: Yes - Notification Comment Comment: Dr. Lafleur called at home, reported on pt c/o contractions, GA, G/P, contraction pattern, pain score 1-2/10, CAT 1 FHT, Reactive NST, cervical exam unchanged after 1 hour, Initial BP 143/88, Repeat BP 123/79, 130/76. Orders to discharge home with instructions to keep scheduled appointment. Maternal Triage Index - Maternal Triage Index Presenting for scheduled procedure w/no complaint: No - Stat/Priority 1 Stat Priority 1: No - Urgent/Priority 2 Urgent Priority 2: No - Prompt/Priority 3 Prompt Priority 3: No - Non-Urgent/Priority 4 Non-Urgent Priority 4: Yes Criteria Met for Priority 4: 37 3/7 weeks, c/o contractions every 8 minutes Disposition - Disposition OB Disposition: Discharge to home Discharge Date: 02/21/25 Discharge Time: 23:26 I agree with the RN Medical Screening Exam: Yes Case reviewed; plan agreed upon as documented in EMR&OBIX.: Yes Diagnosis: FALSE LABOR AT OR AFTER 37 COMPLETED WEEKS OF GESTATION
== END 2025-02-21 23:26 | disposition home or self-care (01) ==
LOC: FBPOP 22:05
PROVIDERS: ATTEND Obstetrics & Gynecology Obstetrics
DX: O47.1 False labor at or after 37 completed weeks of gestation (principal); Z3A.37 37 weeks gestation of pregnancy
CPT/HCPCS: 59025; 99213

== ENCOUNTER 2025-03-04 06:07 | Inpatient (IN) | payer BC ==
[2025-03-04] MEDS ORDERED: OXYTOCIN 10 UNIT/ML 1 ML VIAL IM PRN (06:25)
[2025-03-04] MEDS ORDERED: miSOPROStoL 200 MCG TAB PO PRN (06:25)
[2025-03-04] MEDS ORDERED: LIDOCAINE 0.5% (PF) 5 MG/ML (50 ML SDV) SQ PRN (06:25)
[2025-03-04] MEDS ORDERED: TERBUTALINE 1 MG/ML VIAL SQ PRN (06:25)
[2025-03-04] MEDS ORDERED: CARBOPROST TROMETHAMINE 250 MCG/ML 1 ML AMP IM PRN (06:25)
[2025-03-04] MEDS ORDERED: miSOPROStoL 200 MCG TAB RECTAL PRN (06:25)
[2025-03-04] MEDS ORDERED: TRANEXAMIC 1,000 MG/100ML-NACL 1,000 MG in EMPTY BAG 1 BAG IV PRN (06:25)
[2025-03-04] MEDS: LACTATED RINGERS 1,000 ML IV SCH (06:51)
[2025-03-04] MEDS: AMPICILLIN 2,000 MG in SODIUM CHLORIDE 0.9% 100 ML IVPB STA (06:56)
[2025-03-04] MEDS: OXYTOCIN 30 UNITS/500 ML NS 30 UNIT in SALINE 1 500ML.BAG IV SCH (07:06)
[2025-03-04 07:20] LABS: Basophils # (A) 0.05 10*3/uL (0.00-0.10); Basophils % (A) 0.5 %; Eosinophils # (A) 0.16 10*3/uL (0.04-0.35); Eosinophils % (A) 1.7 %; HCT 32.7 % (37.2-46.3); HGB 11.4 g/dL (12.0-15.0); Lymphocytes # (A) 2.13 10*3/uL (0.90-5.00); Lymphocytes % (A) 22.5 %; MCH 32.3 pg (27.0-32.0); MCHC 34.9 g/dL (32.0-37.0); MCV 92.6 fL (80.0-97.0); Mean Platelet Volume 9.9 fL (9.5-12.2); Monocytes # (A) 0.47 10*3/uL (0.20-1.00); Neutrophils # (A) 6.42 10*3/uL (1.80-7.70); Neutrophils % (A) 67.9 %; Platelet Count 157 10*3/uL (140-440); RBC 3.53 10*6/uL (4.10-5.20); RDW 12.6 % (11.5-14.5); WBC 9.46 10*3/uL (4.50-10.00)
[2025-03-04] MEDS ORDERED: NALBUPHINE 10 MG/ML (10 ML MDV) IV PRN (08:25)
--- NOTE | 2025-03-04 08:25 | P.HPOB ---
History of Present Illness H&P Date: 03/04/25 Chief Complaint: IUP at 39-0/7 weeks This is a 30-year-old -0-1-1 that presented to labor and delivery for elective induction of labor. Patient has been receiving routine care which has been essentially uncomplicated. Patient notes good movement denies vaginal bleeding or loss of fluid. On blood work this patient has a blip of B+, rubella status immune, hepatitis B surface engine negative, HIV negative, RPR is nonreactive, group beta strep culture is positive. Ampicillin has been begun. Review of Systems Constitutional: Denies chills, Denies fatigue, Denies fever Ears, nose, mouth and throat: Denies headache Cardiovascular: Reports leg edema Respiratory: Denies dyspnea Gastrointestinal: Denies constipation, Denies diarrhea, Denies nausea, Denies vomiting Genitourinary: Reports Past Medical History Past Medical History: GERD/Reflux, Thyroid Disorder Additional Past Medical History / Comment(s): fx left wrist, hypothyroidism, pcos History of Any Multi-Drug Resistant Organisms: None Reported Past Surgical History: No Surgical Hx Reported Additional Past Surgical History / Comment(s): oral surgery, plate and screws for left wrist Past Anesthesia/Blood Transfusion Reactions: No Reported Reaction Additional Past Anesthesia/Blood Transfusion Reaction / Comment(s): never had anesthesia Past Psychological History: No Psychological Hx Reported Smoking Status: Never smoker Past Alcohol Use History: None Reported Past Drug Use History: None Reported - Past Family History Mother Family Medical History: Neurologic Disorder, Thyroid Disorder Additional Family Medical History / Comment(s): epilepsy Medications and Allergies Home Medications Medication Instructions Recorded Confirmed Type Aspirin [[place] Aspirin EC] 1 tab PO DAILY 02/21/25 03/04/25 History Vit No.179/Iron/Folic 1 tab PO DAILY 02/21/25 03/04/25 History [ Tablet] Ferrous Sulfate [Iron] 325 mg PO DAILY 03/04/25 03/04/25 History Allergies Allergy/AdvReac Type Severity Reaction Status Date / Time No Known Allergies Allergy Verified 03/04/25 06:24 Exam Osteopathic Statement: *. No significant issues noted on an osteopathic structural exam other than those noted in the History and Physical/Consult. Vital Signs Temp Pulse Resp BP Pulse Ox 03/04/25 06:23 96.6 F L 85 16 125/89 99 Intake and Output 03/03/25 03/04/25 03/04/25 22:59 06:59 14:59 Other: Weight 83.915 kg Targeted physical exam is performed this date in general is well-nourished well- developed female in no acute distress, breathing is nonlabored, abdomen is noted to be gravid, on cervical exam she is 2/70/-2 station amniotomy is performed and clear fluid is obtained. heart tones are noted to be category 1 and she is kirk irregularly. Results Result Diagrams: 03/04/25 06:26 Abnormal Lab Results - Last 24 Hours (Table) 03/04/25 Range/Units 06:26 RBC 3.53 L (4.10-5.20) 10*6/uL Hgb 11.4 L (12.0-15.0) g/dL Hct 32.7 L (37.2-46.3) % MCH 32.3 H (27.0-32.0) pg Immature Gran # 0.23 H (0.00-0.04) 10*3/uL Assessment and Plan (1) Positive GBS test Current Visit: Yes Status: Acute Code(s): B95.1 - STREPTOCOCCUS, GROUP B, CAUSING DISEASES [facility] SNOMED Code(s): 758853176 (2) Term Current Visit: No Status: Acute Code(s): Z34.90 - ENCNTR FOR SUPRVSN OF NORMAL , UNSP, UNSP TRIMESTER SNOMED Code(s): 35676915 Plan: Admit to labor and delivery, clear liquids as tolerated, options for analgesia discussed she will consider. Anticipate spontaneous vaginal delivery.
[2025-03-04] MEDS: AMPICILLIN 1,000 MG in SODIUM CHLORIDE 0.9% 50 ML IVPB SCH (10:55)
[2025-03-04] MEDS ORDERED: SODIUM CHLORIDE 0.9% 250 ML BAG ONE (13:00)
[2025-03-04] MEDS ORDERED: fentaNYL (PF) 50 MCG/ML 5 ML AMP ONE (13:00)
[2025-03-04] MEDS ORDERED: ROPIVACAINE 5 MG/ML 30 ML VIAL ONE (13:00)
[2025-03-04] MEDS: METHYLERGONOVINE 0.2 MG/ML 1 ML AMP IM PRN (17:45)
[2025-03-04] MEDS ORDERED: HYDROCORTISONE 2.5% RECTAL CREAM 30 GM TUBE RECTAL PRN (17:54)
[2025-03-04] MEDS ORDERED: SIMETHICONE 80 MG CHEWABLE PO PRN (17:54)
[2025-03-04] MEDS ORDERED: diphenhydrAMINE 50 MG CAP PO PRN (17:54)
[2025-03-04] MEDS ORDERED: diphenhydrAMINE 50 MG/ML 1 ML VIAL IVP PRN ×2 (17:54)
[2025-03-04] MEDS ORDERED: BENZOCAINE/MENTHOL SPRAY 1 GM/SPRAY AEROSOL TOPICAL PRN (17:54)
[2025-03-04] MEDS ORDERED: ZOLPIDEM 5 MG TAB PO PRN (17:54)
[2025-03-04] MEDS ORDERED: diphenhydrAMINE 25 MG CAP PO PRN (17:54)
[2025-03-04] MEDS ORDERED: LANOLIN CREAM 1 GM TUBE TOPICAL PRN (17:54)
--- NOTE | 2025-03-04 17:59 | P.PROBDLV ---
Vaginal Delivery Note - . Vaginal Delivery Note: Date of service: 03/04/2025 Findings: viable female infant delivered at 1732, weight of 6 pounds 8 ounces This is a 30-year-old 3 para 1-0-1-1 that presented to labor and delivery for elective induction of labor. Patient has a history of hemorrhage with her first . Patient was admitted to labor and delivery and Pitocin induction of labor was begun. Patient underwent amniotomy and clear fluid was obtained. Patient progressed in labor becoming uncomfortable and requesting epidural for analgesia. Patient made good progress toward complete dilation. Once completely dilated patient began pushing and had a normal spontaneous vaginal delivery of a viable female infant at 1732, weight of 6 pounds 8 ounces or 2970 g. Apgars of 9 and 9 were noted after delivery. After 2-minute delay the umbilical cord was doubly clamped and cut. Placenta was delivered spontaneously intact with a three-vessel cord being noted. Inspection of the patient's vaginal vault second-degree midline laceration was appreciated. This was repaired in the usual fashion with 3-0 Rapide. After closure hemostasis was appreciated. Just prior to closure being complete a large gush of blood was appreciated and on exam uterus was noted to be boggy in nature. Methergine was given IM. Uterus firmed nicely. Estimated blood loss 250 cc All counts were to be correct x 2. Patient and tolerated delivery well and are resting comfortably
[2025-03-04] MEDS: IBUPROFEN 800 MG TAB PO SCH (20:18)
[2025-03-04] MEDS: SENNOSIDES-DOCUSATE SODIUM 1 EACH TAB PO SCH (20:26)
[2025-03-05] MEDS: ACETAMINOPHEN TAB 500 MG TAB PO SCH (02:01)
--- NOTE | 2025-03-05 08:27 | P.DS ---
Providers Date of admission: 03/04/25 06:07 Expected date of discharge: 03/05/25 Attending physician: Michelle Lafleur Primary care physician: Stated None - Discharge Diagnosis(es) (1) Positive GBS test Current Visit: Yes Status: Acute (2) Term Current Visit: No Status: Acute (3) Normal spontaneous vaginal delivery Current Visit: No Status: Acute (4) Perineal laceration with delivery, second degree Current Visit: No Status: Acute Hospital Course: This is a 30-year-old 3 now para 2-0-1-2 that presented to labor and delivery on 03/04 for scheduled induction of labor at 39-0/7 weeks. Patient had a history of hemorrhage with her first of note. For full details in this patient please see dictated history and physical. Patient was admitted to labor and delivery and Pitocin induction of labor was begun patient made good progress to labor eventually getting an epidural for analgesia. Patient made good progress toward complete began pushing and had a normal spontaneous vaginal delivery of a viable female infant at 1732, weight of 6 pounds 8 ounces. Second-degree vaginal laceration was appreciated this was repaired in the usual fashion with 3-0 Rapide. Patient did continue to have moderate to heavy bleeding with 2 separate gushes after delivery. Methergine was given x 1 and uterine atony resolved. Patient's course has been uneventful. In this day #1 she is ambulating and voiding without difficulty. She is breast-feeding without difficulty. States her lochia is minimal to moderate. She states she feels well. She would like discharge home later today. Patient Condition at Discharge: Good Plan - Discharge Summary New Discharge Prescriptions: No Action Aspirin [[place] Aspirin EC] 1 tab PO DAILY Vit No.179/Iron/Folic [ Tablet] 1 tab PO DAILY Ferrous Sulfate [Iron] 325 mg PO DAILY Discharge Medication List Aspirin [[place] Aspirin EC] 1 tab PO DAILY 02/21/25 [History] Vit No.179/Iron/Folic [ Tablet] 1 tab PO DAILY 02/21/25 [History] Ferrous Sulfate [Iron] 325 mg PO DAILY 03/04/25 [History] Follow up Appointment(s)/Referral(s): Michelle Lafleur DO [Doctor of Osteopathic Medicine] - 07/01/25 1:00 pm Patient Instructions/Handouts: Vaginal Delivery (DC), Vaginal Delivery (GEN) Activity/Diet/Wound Care/Special Instructions: No tub baths or intercourse until 6 weeks . [id number] ibuprofen 600 mg or 3 tablets every 6 hours as needed for pain. Routine check at 6 weeks. Should she any concerns prior to his appointment she is urged to call the office and be seen prior. Discharge Disposition: HOME SELF-CARE
[2025-03-05] MEDS: FERROUS SULFATE 325 MG TAB PO SCH (10:00)
[2025-03-05] MEDS: PRENATAL VIT-IRON-FOLIC ACID 1 EACH TABLET PO SCH (10:00)
[2025-03-05 16:55] VITALS: BP 134/78; PULSE 85; RESP 16; TEMP 97.9
== END 2025-03-05 18:15 | disposition home or self-care (01) | DRG 807 ==
LOC: 4FBP 06:07
PROVIDERS: ADMIT Obstetrics & Gynecology Obstetrics; ATTEND Obstetrics & Gynecology Obstetrics
PROC: 3E033VJ Introduction of Other Hormone into Peripheral Vein, Percutaneous Approach (ICD-10-PCS; principal; 2025-03-04)
PROC: 10E0XZZ Delivery of Products of Conception, External Approach (ICD-10-PCS; principal; 2025-03-04)
PROC: 10907ZC Drainage of Amniotic Fluid, Therapeutic from Products of Conception, Via Natural or Artificial Opening (ICD-10-PCS; principal; 2025-03-04)
PROC: 0KQM0ZZ Repair Perineum Muscle, Open Approach (ICD-10-PCS; principal; 2025-03-04)
DX: O99.824 Streptococcus B carrier state complicating childbirth (principal); E03.9 Hypothyroidism, unspecified; O62.2 Other uterine inertia; O99.284 Endocrine, nutritional and metabolic diseases complicating childbirth; O99.62 Diseases of the digestive system complicating childbirth; O70.1 Second degree perineal laceration during delivery; E28.2 Polycystic ovarian syndrome; K21.9 Gastro-esophageal reflux disease without esophagitis; Z79.82 Long term (current) use of aspirin; Z3A.39 39 weeks gestation of pregnancy; Z37.0 Single live birth
CPT/HCPCS: 85025; 86850; 86900; 86901